=== PATIENT | female | born 1990 | race Native Hawaiian/Other Pacific Islander ===

== ENCOUNTER 2017-02-27 20:25 | Emergency (ER) | payer BC, OTHER ==
[2017-02-27 20:39] VITALS: BP 122/89; PULSE 78; RESP 18; O2SAT 99
--- NOTE | 2017-02-27 20:52 | ED PDOC ---
HPI: Abdomen Time Seen by Provider: 02/27/17 20:51 Chief Complaint (Nursing): Abdominal Pain Chief Complaint (Provider): abd pain History Per: Patient Additional Complaint(s): 27-year-old female presents with mid abdominal pain and watery, non-bloody diarrhea associated with nausea but no vomiting that started earlier today. Patient believes that she ate fish last night that may have been spoiled causing her to feel sick. She denies fever or chills. Patient rates her abdominal pain as a 4 out of 10. She has been able to eat today but feels nauseous and has abdominal pain after eating or drinking anything. Patient denies any recent travel. Past Medical History Reviewed: Historical Data, Nursing Documentation, Vital Signs Vital Signs: Last Vital Signs Temp 98.2 F 02/27/17 22:32 Pulse 78 02/27/17 20:36 Resp 18 02/27/17 20:36 BP 122/89 02/27/17 20:36 Pulse Ox 99 02/27/17 22:16 - Medical History PMH: No Chronic Diseases - Surgical History Surgical History: No Surg Hx - Family History Family History: States: No Known Family Hx - Living Arrangements Living Arrangements: With Family - Social History Current smoker - smoking cessation education provided: No Alcohol: None Drugs: Denies - Home Medications Home Medications: Ambulatory Orders Medication Instructions Recorded Bacitracin Ointment [Bacitracin] 1 applic TOP BID #1 tube 07/29/15 Clindamycin [Cleocin] 300 mg PO Q8 #21 cap 07/29/15 Ondansetron ODT [Zofran ODT] 4 mg PO Q8 PRN #12 odt 10/06/15 Ibuprofen [Motrin Tab] 600 mg PO Q6 #30 tab 01/24/16 Dicyclomine [Bentyl] 10 mg PO QID PRN #15 cap 02/27/17 Ondansetron [Zofran Odt] 4 mg PO ASDIR PRN #15 odt 02/27/17 - Allergies Allergies/Adverse Reactions: Allergies Allergy/AdvReac Type Severity Reaction Status Date / Time Penicillins Allergy RASH Verified 01/24/16 21:18 Review of Systems ROS Statement: Except As Marked, All Systems Reviewed And Found Negative Constitutional: Negative for: Fever, Chills Cardiovascular: Negative for: Chest Pain Respiratory: Negative for: Cough Gastrointestinal: Positive for: Nausea, Abdominal Pain, Diarrhea. Negative for : Vomiting Genitourinary Female: Negative for: Dysuria Neurological: Negative for: Headache, Dizziness Physical Exam - Reviewed Nursing Documentation Reviewed: Yes Vital Signs Reviewed: Yes - Physical Exam Appears: Positive for: Well, Non-toxic, No Acute Distress Skin: Negative for: Pallor, Rash Eye Exam: Positive for: Normal appearance Cardiovascular/Chest: Positive for: Regular Rate, Rhythm Respiratory: Positive for: Normal Breath Sounds Gastrointestinal/Abdominal: Positive for: Soft, Tenderness (Minimal tenderness to periumbilical region, abdomen otherwise nontender, no distention, no guarding , no rebound, normo active bowel sounds in all 4 quadrants) Back: Negative for: L CVA Tenderness, R CVA Tenderness Extremity: Positive for: Normal ROM Neurologic/Psych: Positive for: Alert, Oriented - Laboratory Results Result Diagrams: 02/27/17 21:00 02/27/17 21:45 Urine POC: Negative Urine dip results: Negative for: Leukocyte Esterase, Blood, Nitrate, Ketones, Glucose, Bilirubin, Protein - ECG O2 Sat by Pulse Oximetry: 99 Pulse Ox Interpretation: Normal Medical Decision Making Medical Decision Makin-year-old female with nausea, diarrhea and abdominal pain. Plan: CBC CMP Lipase IVF IV zofran PO tylenol IV toradol Repeat temp: 98.2 Patient states that abdominal pain and nausea have resolved. Repeat examination demonstrates benign abdomen. Patient discharged with prescriptions for Zofran and Bentyl. She was instructed to follow bland diet and drink plenty of fluids. Patient was advised to follow up with clinic or primary doctor in 2-3 days. Disposition - Clinical Impression Clinical Impression: Gastroenteritis - Patient ED Disposition Is Patient to be Admitted: No Counseled Patient/Family Regarding: Studies Performed, Diagnosis, Need For Followup, Rx Given - Disposition Referrals: [facility] [Outside] Disposition: Routine/Home Disposition Time: 22:37 Condition: IMPROVED Additional Instructions: Drink plenty of fluids and follow bland diet. Take prescription meds as directed as needed. Follow-up with primary doctor or clinic in 2-3 days. Prescriptions: Dicyclomine [Bentyl] 10 mg PO QID PRN #15 cap PRN Reason: Gi Distress Ondansetron [Zofran Odt] 4 mg PO ASDIR PRN #15 odt PRN Reason: Nausea/Vomiting Instructions: Gastroenteritis (ED), Nutrition Tips for Relief of Diarrhea (ED) Forms: [employer] (Belgian) Results - Lab Results Lab Results: 02/27/17 02/27/17 21:45 21:00 WBC 8.0 RBC 4.69 Hgb 13.2 Hct 39.9 MCV 85.0 MCH 28.2 MCHC 33.2 RDW 14.1 Plt Count 226 MPV 8.9 Neut % (Auto) 56.5 Lymph % (Auto) 36.1 [place] % (Auto) 5.2 Eos % (Auto) 1.1 Baso % (Auto) 1.1 Neut # 4.5 Lymph # 2.9 [place] # 0.4 Eos # 0.1 Baso # 0.1 Sodium 143 Potassium 3.6 Chloride 107 Carbon Dioxide 24 Anion Gap 15 BUN 9 Creatinine 0.8 Est GFR ( Amer) > 60 Est GFR (Non-Af Amer) > 60 Random Glucose 106 H Calcium 8.6 Total Bilirubin 0.3 AST 26 ALT 27 Alkaline Phosphatase 70 Total Protein 7.2 Albumin 4.1 Globulin 3.1 Albumin/Globulin Ratio 1.3 Lipase 95
[2017-02-27] MEDS ORDERED: Sodium Chloride 0.9% 1,000 ML IV STA (20:58)
[2017-02-27 21:27] LABS: BASO # 0.1 K/uL (0.0-0.2); BASO % 1.1 % (0.0-2.0); EOS # 0.1 K/uL (0.0-0.7); EOS % 1.1 % (0.0-4.0); HEMATOCRIT 39.9 % (34.0-47.0); LYMPH # 2.9 K/uL (1.0-4.3); LYMPH % 36.1 % (20.0-40.0); MEAN CORPUSCULAR HEMOGLOBIN 28.2 pg (27.0-31.0); MEAN CORPUSCULAR HGB CONC 33.2 g/dL (33.0-37.0); MEAN PLATELET VOLUME 8.9 fl (7.2-11.7); MONO # 0.4 K/uL (0.0-0.8); MONO % 5.2 % (0.0-10.0); NEUT # 4.5 K/uL (1.8-7.0); NEUT % 56.5 % (50.0-75.0); NRBC % 0.1 % (0.0-0.0); RED CELL DISTRIBUTION WIDTH 14.1 % (11.5-14.5)
[2017-02-27 22:07] LABS: ALB/GLOB RATIO 1.3 (1.0-2.1); ALKALINE PHOSPHATASE 70 U/L (38-126); ALT/SGPT 27 U/L (9-52); AST/SGOT 26 U/L (14-36); BILIRUBIN,TOTAL 0.3 mg/dl (0.2-1.3); BLOOD UREA NITROGEN 9 mg/dl (7-17); CALCIUM 8.6 mg/dL (8.4-10.2); CARBON DIOXIDE 24 mmol/L (22-30); CHLORIDE 107 mmol/L (98-107); GFR AFRICAN-AMERICAN > 60; GLUCOSE,RANDOM 106 mg/dL (65-105); LIPASE 95 U/L (23-300); POTASSIUM 3.6 MMOL/L (3.6-5.0); SODIUM 143 mmol/l (132-148); TOTAL PROTEIN 7.2 G/DL (6.3-8.2)
[2017-02-27 22:33] VITALS: TEMP 98.2
== END 2017-02-27 22:49 | disposition home or self-care (01) ==
LOC: H.ER 20:25
DX: K52.9 Noninfective gastroenteritis and colitis, unspecified (principal); Z88.0 Allergy status to penicillin
CPT/HCPCS: 80053; 81025; 83690; 85025; 96374; 96375; 99282; J1885; J2405; J7040